=== PATIENT | male | born 1970 | race Caucasian/White ===

== ENCOUNTER 2019-03-08 21:31 | Inpatient (IN) | payer OTHER ==
[~2019-03-08 21:31] MED LIST: Iopamidol-370 76% 500 ML 1 ML ONE
[2019-03-08 22:34] LABS: #Basophils 0.1 thou/uL (0.0-0.2); #Eosinphils 0.1 thou/uL (0.0-0.7); #Lymphocytes 2.1 thou/uL (1.20-3.40); #Monocytes 1.7 thou/uL (0.11-0.59); %Basophils 0.5 % (0.0-1.0); %Eosinophils 0.6 % (0.0-10.0); %Lymphocytes 15.3 % (21.0-51.0); %Neutrophils 71.7 % (42.0-75.0); Hemoglobin 13.8 g/dL (14.0-18.0); Mean Corpuscular HGB CONC 32.5 g/dL (32.0-36.0); Mean Corpuscular Hemoglobin 32.2 pg (27.0-31.0); Mean Corpuscular Volume 99.1 fL (78.0-98.0); Mean Platelet Volume 7.2 fL (7.4-10.4); Platelet Count 374 thou/uL (130-400); RBC Distribution Width 12.3 % (11.5-14.5); Red Blood Cell (RBC) Count 4.29 mill/uL (4.70-6.10); White Blood Cell (WBC) Count 13.9 thou/uL (4.8-10.8)
[2019-03-08 22:57] LABS: ALT (SGPT) 54 U/L (8-55); AST (SGOT) 27 U/L (5-34); Albumin 3.9 g/dL (3.5-5.0); Alkaline Phosphatase 85 U/L (40-110); Anion Gap 12 mmol/L (10-20); BUN (Urea Nitrogen) 10 mg/dL (8.9-20.6); Bilirubin, Total 1.1 mg/dL (0.2-1.2); Calc. Creatinine Clearance 0 mL/min (70-130); Calcium 9.3 mg/dL (7.8-10.44); Carbon Dioxide 29 mmol/L (22-29); Chloride 98 mmol/L (98-107); Estimated GFR-MDRD Greater than 90; Globulin 3.7 g/dL (2.4-3.5); Glucose 93 mg/dL (70-105); Lipase 8 U/L (8-78); Potassium 4.2 mmol/L (3.5-5.1); Protein, Total 7.6 g/dL (6.0-8.3); Sodium 135 mmol/L (136-145)
[2019-03-08 23:41] LABS: Bilirubin Negative (Negative); Blood, Urine Negative (Negative); Clarity Clear (Clear); Glucose, Urine (Dipstick) Normal (Negative); Leukocyte Negative Leu/uL (Negative); Nitrite Negative (Negative); Protein, Urine (Dipstick) Negative (Neg-Trace); Urobilinogen Normal mg/dL (Less than 2)
[2019-03-09] MEDS ORDERED: Piperacillin/Tazobactam 3.375 GM VIAL ONE (00:40)
[2019-03-09] MEDS ORDERED: Morphine 4 MG/ML VIAL ONE (00:46)
[2019-03-09] MEDS ORDERED: Ondansetron PF 4 MG/2 ML Vial IVP PRN ×2 (03:50→13:19)
[2019-03-09] MEDS ORDERED: Ondansetron ODT 4 MG TAB SL PRN (03:50)
[2019-03-09] MEDS: Piperacillin/Tazobactam 3.375 GM in Sodium Chloride 0.9% 100 ML IVPB SCH ×4 (06:07→23:46)
[2019-03-09 07:16] LABS: INR-International Normal Ratio 1.3; PTT 35.7 SEC (22.9-36.1); Prothrombin Time 16.3 SEC (12.0-14.7)
--- NOTE | 2019-03-09 09:02 | CT ---
PRELIMINARY REPORT/[facility]/EMERGENCY AFTER HOURS PROCEDURE: Receipt of this report by the clinical staff was confirmed with RN Jasson Borges by Tim Lei on Mar 09, 2019 00:19:00 DOCTOR CHIROPRACTIC. Addendum electronically signed by America Lei on March 09, 2019 12:22:11 AM DOCTOR CHIROPRACTIC EXAM: CT Abdomen and Pelvis with Intravenous Contrast CLINICAL HISTORY: M48 presents to the ED with c/o interment fever, constipation and lower abdominal pain x 1 weeks. Pt states his bowel movements have become hard and infrequent. Pt reports small BM today. Pt states the pain started before the constipation. Surgical history of hernia repair. TECHNIQUE: Axial computed tomography images of the abdomen and pelvis with intravenous contrast. CONTRAST: With; ISOVUE 370, 90ML COMPARISON: None provided. FINDINGS: LUNG BASES: No basilar airspace consolidation or pleural effusion. Trace bibasilar atelectasis. LIVER: Unremarkable. GALLBLADDER AND BILE DUCTS: Unremarkable. No calcified stone. No ductal dilation. PANCREAS: Unremarkable. SPLEEN: Unremarkable. ADRENAL GLANDS: Unremarkable. KIDNEYS, URETERS, AND BLADDER: Unremarkable. No hydronephrosis or nephrolithiasis. No ureteral or concepción dder calculi. STOMACH AND BOWEL: No obstruction. No wall thickening. No CT evidence of colitis or acute diverticuli tis. APPENDIX: Right retrocecal abscess which measures 4.5 x 3.1 x 6.7 cm (transverse, AP, CC) associated with an indistinct, expanded appendix. There is surrounding inflammatory stranding. There is gas with in the abscess, however no gulshan gas within the abdomen. PERITONEUM: No free fluid. No free air. LYMPH NODES: No lymphadenopathy. REPRODUCTIVE: Unremarkable as visualized. VASCULATURE: Atherosclerotic calcification of the aorta and major branches without aneurysm. BONES: Transitional lumbosacral anatomy with pseudoarticulation of the left transverse process of L5 with the sacrum. No acute fractures or worrisome osseous lesions. ABDOMINAL WALL AND SOFT TISSUES: Unremarkable. IMPRESSION: 6.7 cm retrocecal abscess which is most concerning for ruptured acute appendicitis. Recommend surgica l evaluation. ELECTRONICALLY SIGNED BY: Gerhard Pratt M.D. Mar 09, 2019 12:17:48 AM DOCTOR CHIROPRACTIC This report is intended for review by the ordering physician only, in accordance of law. If you recei ve this report in error, please call [facility] at [phone]. FINAL REPORT EMERGENCY AFTER HOURS CT ABDOMEN AND PELVIS WITH CONTRAST: FINDINGS/IMPRESSION: I agree with the findings and impression given in the preliminary report per [facility] physici an. There is an abscess adjacent to the cecum.
[2019-03-09] MEDS: Morphine 2 MG/ML SYRINGE SLOW IVP PRN ×3 (11:26→20:41)
--- NOTE | 2019-03-09 11:41 | HP ---
CHIEF COMPLAINT: Abdominal pain. HISTORY OF PRESENT ILLNESS: The patient is a 48-year-old white male. He has a 1-week history of abdominal complaints that he felt was primarily related to constipation. He denies any nausea or vomiting. He felt that he had pain on both sides of his abdomen. He notes that he has been febrile the past few days. He presented to the emergency room overnight for evaluation that was carried out with laboratory and radiologic studies. Labs revealed elevated white blood cell count of 13.9 with a hemoglobin of 13.8. His chemistry panel was more or less unremarkable. A CT scan of his abdomen and pelvis was obtained revealing a retrocecal perforated appendicitis with an abscess extending up along the posterior aspect of the right colon. This appears to be amenable to a percutaneous drainage. He was admitted to my service for further treatment. PAST MEDICAL HISTORY: Significant for history of tobacco abuse. PAST SURGICAL HISTORY: He has had left knee surgery and left inguinal hernia repair. MEDICATIONS: None. ALLERGIES: NO KNOWN DRUG ALLERGIES. PRIMARY CARE PHYSICIAN: None. PERSONAL AND SOCIAL HISTORY: He is with 3 children. He lives in [place]. He smokes about one pack per day of cigarettes. He drinks alcohol occasionally, but not every day. He works in [employer]. REVIEW OF SYSTEMS: Otherwise unremarkable. FAMILY HISTORY: Noncontributory. PHYSICAL EXAMINATION: VITAL SIGNS: His temperature on the floor is 98.2, pulse 90, blood pressure 123/70. GENERAL: A well-developed, well-nourished, pleasant white male, resting in bed, in no acute distress. He is alert and oriented x3. HEAD, EYES, EARS, NOSE, AND THROAT: Unremarkable. NECK: Supple without mass or tenderness. LUNGS: Clear to auscultation throughout. CARDIAC: Regular rate and rhythm without murmur. ABDOMEN: Protuberant. I cannot tell if it is distended or if he just normally has a protuberant abdomen. Bowel sounds are present and normoactive. He is tender to palpation on the right side of his abdomen. He claims some discomfort on the left side, but does not appear to have any peritoneal signs over there. EXTREMITIES: Unremarkable. ASSESSMENT: The patient with perforated appendix with abscess formation. PLAN: CT-guided percutaneous drainage per Radiology today. I will keep him on IV antibiotics, advance his diet as he tolerates, and discharge him when he appears to be stabilized, hopefully in 2 or 3 days. I would thereafter anticipate discharge home with the catheter still in place and eventual outpatient removal. I discussed the possibility of an interval appendectomy in 6 to 12 weeks depending upon his course. Job ID: [id number]
--- NOTE | 2019-03-09 13:04 | RAD ---
EXAM: 2 views of the abdomen HISTORY: Abdominal pain; code Green COMPARISON: None FINDINGS: 2 views of the abdomen shows a nonspecific, nonobstructive bowel gas pattern. A pigtail cat heter is seen in the right lower quadrant of the abdomen. No free air or air-fluid levels are seen on upright examination. No suspicious calcifications are seen. The bones are unremarkable. IMPRESSION: No evidence of bowel obstruction.
--- NOTE | 2019-03-09 13:16 | CT ---
CT GUIDED RIGHT RETROPERITONEAL ABSCESS DRAINAGE: INDICATION: Retrocecal abscess. TECHNIQUE: Informed consent was obtained. Patient was placed in the left lateral decubitus position. Preprocedur e CT was performed for guidance purposes only. Site overlying the collection residing posterior to the cecum was localized on the skin with a preprocedure CT evaluation. Buffered 1% lidocaine was admi nistered to the overlying subcutaneous tissues and the right lateral abdominal wall. Under CT fluoroscopic guidance, a 15 cm 5 Malay Workspot catheter was guided down to the level of the collection. An 0.035 Amplatz wire was then introduced into the catheter and found to coil within the collection, extending up to underlie the right hepatic margin. An 8 Malay is soft tissue dilator was then introduced into the abdominal wall. An 8 Malay all-purpose drain was then guided over the wire and coiled within the collection. There was approximately 18 cc of purulent material aspirated f rom the collection through the catheter. The catheter was fixated to the abdominal wall utilizing an 0 silk suture and a Percu-Stay device. The patient did undergo conscious sedation for the examinat ion received 100 mcg of IV fentanyl and 2 mg of IV Versed. The patient tolerated the examination without difficulty. FINDINGS: Post procedure examination demonstrates a small amount of gas within the right and abdominal wall fred ng the tract of the all-purpose drain. A small amount of extraluminal gas is seen adjacent to the catheter likely from catheter placement. The fluid collection is near totally resolved following aspi ration of the purulent material. IMPRESSION: Successful CT-guided right retroperitoneal abscess drainage. Transcribed Date/Time: 03/09/2019 1:41 PM
[2019-03-09] MEDS ORDERED: Morphine 4 MG/ML VIAL SLOW IVP PRN (13:17)
[2019-03-09] MEDS ORDERED: Promethazine HCl 25 MG/ML VIAL IM SCH (13:20)
[2019-03-09] MEDS: D5 0.9% NS w/ 20 mEq KCl 1,000 ML IV SCH ×3 (14:08→23:55)
[2019-03-09] MEDS ORDERED: Acetaminophen 500 MG TAB PO PRN (17:56)
[2019-03-09] MEDS: Famotidine 20 MG TAB PO SCH (20:41)
[2019-03-09] MEDS ORDERED: FLU VACC QS2019-20(6MOS UP)/PF 60 MCG/0.5 ML SYRINGE IM ONE (21:00)
[2019-03-10] MEDS: Morphine 2 MG/ML SYRINGE SLOW IVP PRN ×2 (04:29→07:53)
[2019-03-10 06:07] LABS: #Eosinphils 0.1 thou/uL (0.0-0.7); #Lymphocytes 1.1 thou/uL (1.20-3.40); #Monocytes 0.9 thou/uL (0.11-0.59); #Neutrophils 8.7 thou/uL (1.40-6.50); %Basophils 0.2 % (0.0-1.0); %Eosinophils 0.8 % (0.0-10.0); %Lymphocytes 10.2 % (21.0-51.0); %Monocytes 8.1 % (0.0-10.0); %Neutrophils 80.7 % (42.0-75.0); Hemoglobin 12.5 g/dL (14.0-18.0); Mean Corpuscular HGB CONC 34.7 g/dL (32.0-36.0); Mean Platelet Volume 7.4 fL (7.4-10.4); Platelet Count 366 thou/uL (130-400); RBC Distribution Width 12.6 % (11.5-14.5); Red Blood Cell (RBC) Count 3.57 mill/uL (4.70-6.10); White Blood Cell (WBC) Count 10.8 thou/uL (4.8-10.8)
[2019-03-10] MEDS: Piperacillin/Tazobactam 3.375 GM in Sodium Chloride 0.9% 100 ML IVPB SCH ×4 (06:16→23:40)
[2019-03-10 06:25] LABS: Anion Gap 9 mmol/L (10-20); BUN (Urea Nitrogen) 10 mg/dL (8.9-20.6); Calc. Creatinine Clearance 147 mL/min (70-130); Calcium 8.1 mg/dL (7.8-10.44); Carbon Dioxide 24 mmol/L (22-29); Chloride 107 mmol/L (98-107); Estimated GFR-MDRD Greater than 90; Glucose 128 mg/dL (70-105); Potassium 3.8 mmol/L (3.5-5.1); Sodium 136 mmol/L (136-145)
--- NOTE | 2019-03-10 07:05 | PDOC.GSPN ---
Surgery Progress Note: Subj - Subjective Narrative: Mr. Mota is a 48 y/o white male on hospital day #2 for ruptured appendicitis with retroceccal abscess formation. CT guided percutaneous drainage yesterday by radiology. Drain was left in place and over the last 24 hours has drained 65 ml of serosaingenous fluid. Anthony ballard was called yesterday for nurse concerns about tachycardia (highest 119bpm), abdominal rigidity and fever and the patient reports that he was 'cold and shaking'. Abdominal x ray taken at the time was negative for free air or small bowel obstruction. The episode was self limiting and resolved. No similar episodes overnight. He reports that he has had previous episodes of cold intolerance in his life. Denies palpitations, CP, SOB, changes in weight or energy in the last few months. He is receiving IV zosyn and D5 NS w/ 20 KCl at a rate of 125 ml/ hr. He still is reporting abdominal pain localized at the drain site, 7/10, worse with eating/drinking and movement. He was able to get out of bed yesterday to walk to the bathroom twice. Denies nausea or vomiting. Had 1 bowel movement at 4AM that was 'mostly gas and a little splash of diarrhea" without blood or mucous. Abdominal pain greatly improved after BM. Reports that he has been using incentive spirometry. Surgery Progress Note: Obj - Vital signs Vital signs: Vital Signs - Most Recent Temp Pulse Resp BP Pulse Ox 97.9 F 93 16 133/70 96 03/10/19 04:02 03/10/19 04:02 03/10/19 04:02 03/10/19 04:02 03/10/19 04:02 - Physical Exam General: no distress, other ENT: no congestion, other (O2 nasal canula in place) Cardiovascular: regular rate and rhythm, no murmur, other (2+ radial pulses. No peripheral edema.) Respiratory: clear to auscultation, wheezing, other (long expiratory phase) Abdomen: rigid, tender (on the entire right side of his abddomen.), other ( protuberant abdomen.Negative rebound tenderness. RLQ drain in place. Drain site without erythema/inflammation.) Wound: drainage (RLQ drain recently emptied.) Surgery Progress Note: Results - Labs Result Diagrams: 03/10/19 05:40 03/10/19 05:40 Lab results: Laboratory Results - last 24 hr 03/10/19 03/10/19 05:40 05:40 WBC 10.8 RBC 3.57 L Hgb 12.5 L Hct 35.9 L MCV 101.0 H MCH 35.0 H MCHC 34.7 RDW 12.6 Plt Count 366 MPV 7.4 Neutrophils % 80.7 H Lymphocytes % 10.2 L Monocytes % 8.1 Eosinophils % 0.8 Basophils % 0.2 Neutrophils # 8.7 H Lymphocytes # 1.1 L Monocytes # 0.9 H Eosinophils # 0.1 Basophils # 0.0 Sodium 136 Potassium 3.8 Chloride 107 Carbon Dioxide 24 Anion Gap 9 L BUN 10 Creatinine 0.72 Estimated GFR (MDRD) Greater than 90 Glucose 128 H Calcium 8.1 Surgery Progress Note: A/P - Plan Plan: 48 y/o white male on hospital day #2 for perforated appendix and retrocecal abscess formation that was drained yesterday. Nursing reports that his condition is worsening from admission. His white count has come down to 10.8 from 13.9 and he has not been febrile other than during the code green episode yesterday. Code green yesterday may have been d/t patient's reaction/pain from recent drain placement. His abdomen still has significant tenderness and plan is to continue IV Abx, continue regular diet, encourage ambulation and monitor for improvement of his abdominal pain. He is tolerating diet and his fluids can be turned down to 75 ml/hr today. His cold intolerance and tachycardia raise concern for possible thyroid etiology or paroxysmal afib (perhaps 2/2 to COPD: 30 pk year smoking hx, SOB and wheezing on exam). I think it would be beneficial to get a baseline TSH w/ reflex T4 for him right now. Patient has been encouraged to ambulate and use incentive spirometry. Agree with above. Anticipate discharge tomorrow with drain still in.
[2019-03-10] MEDS ORDERED: HYDROcodone/Acetaminophen 7.5/325 mg Tablet PO PRN (07:51)
[2019-03-10] MEDS ORDERED: Ondansetron ODT 4 MG TAB PO PRN (07:52)
[2019-03-10] MEDS: Polyethylene Glycol 3350 17 GM Packet PO SCH (10:07)
[2019-03-10] MEDS: Famotidine 20 MG TAB PO SCH ×2 (10:07→21:07)
[2019-03-10] MEDS: Enoxaparin Sodium 40 MG/0.4 ML SYRINGE SC SCH (10:07)
[2019-03-10] MEDS: D5 0.9% NS w/ 20 mEq KCl 1,000 ML IV SCH ×5 (10:44→23:41)
[2019-03-10] MEDS: HYDROcodone/Acetaminophen 7.5/325 mg Tablet PO PRN ×2 (11:58→21:14)
[2019-03-11] MEDS: HYDROcodone/Acetaminophen 7.5/325 mg Tablet PO PRN ×3 (04:38→12:42)
[2019-03-11] MEDS: Piperacillin/Tazobactam 3.375 GM in Sodium Chloride 0.9% 100 ML IVPB SCH ×2 (06:28→12:10)
--- NOTE | 2019-03-11 07:53 | PDOC.GSPN ---
Surgery Progress Note: Subj - Subjective Narrative: Mr. Mota is a 48 y/o male on hospital day #3 following perforated appendicitis with retroceccal abscess. He underwent CT guided percutaneous drainage on Thursday by radiology and drain remains in RLQ. Per nursing drain produced 38mls of serous fluid overnight. Pt states he had a "fairly uneventful " night receiving Kinsey at 0430 for pain and duonebs at 0628 this morning. He still reports abdominal pain on right side of abdomen, 7/10, with maximum intensity in RLQ that is worse with movement and eating. He is tolerating a regular diet having eaten dinner and breakfast without nausea or vomiting. Pt did not have any other bowel movements overnight but states that he has mild flatulence, "feels the urge to go" last night/a.m. but nothing happens when he goes to the bathroom. He is walking the floor often and using incentive spirometry. TSH from yesterday was WNL and patient denies any other episodes of "cold and shaking" that he experienced yesterday. He is receiving IV zosyn and D5 NS with 20 Kavita KCl at rate of 75 ml/hr. Denies N/V/D, cough, SOB, CP, palpitations. As above. Will not repeat labs. Will discharge today. Surgery Progress Note: Obj - Vital signs Vital signs: Vital Signs - Most Recent Temp Pulse Resp BP Pulse Ox 98.5 F 83 16 119/64 94 L 03/11/19 06:25 03/11/19 06:28 03/11/19 06:28 03/11/19 06:25 03/11/19 06:30 - Physical Exam General: no distress ENT: normal mucosa Cardiovascular: other (regular rate and rhythm, no MGR, 2+ radial and dorsalis pedis pulses. No peripheral edema) Respiratory: other (clear and vesicular in all lung morejon without wheezing, rhonchi, or rales.) Abdomen: other (protuberant abdomen with tenderness on right side maximum intensity in RLQ, negative guarding or rebound tenderness. Drain in RLQ without erythema/warmth/inflammation and put out 38 mls of "purulent serous fluid" overnight.) Wound: other (RLQ drain in place...without concerning erythema/warmth/ inflammation (drained this morning).) Surgery Progress Note: Results - Labs Result Diagrams: 03/10/19 05:40 03/10/19 05:40 Surgery Progress Note: A/P - Plan Plan: Mr. Mota is a 48 y/o male on hospital day #3 for perforated appendicitis and retroceccal abscess. He received a CT guided percutaneous drain on Thursday which remains in place and drained 38mls or "purulent serous fluid" overnight. He stills complains of right sided abdominal pain, 7/10, and managed with Kinsey overnight. His WBC was down to 10.8 yesterday after being 13.9 on presentation. Since his abdomen continues to have significant pain, we will continue IV Antibiotics, manage pain with Kinsey as needed. Recommend running CBC and CMP today in light of persistent symptoms. Continue regular diet as its being tolerated well, and encouraged continued ambulation and incentive spirometry. Continue fluids at 75 ml/hr and monitor for pain management and bowel movements. Anticipate discharge later today or tomorrow if pt is stable (pain is managed/continues to tolerate PO diet, and pending lab results) with drain in place and f/u in office next week.
[2019-03-11 07:55] VITALS: TEMP 98
[2019-03-11] MEDS: Famotidine 20 MG TAB PO SCH (08:15)
[2019-03-11] MEDS: Polyethylene Glycol 3350 17 GM Packet PO SCH (08:15)
[2019-03-11] MEDS: Enoxaparin Sodium 40 MG/0.4 ML SYRINGE SC SCH (08:16)
[2019-03-11] MEDS: D5 0.9% NS w/ 20 mEq KCl 1,000 ML IV SCH (08:17)
[2019-03-11 11:30] VITALS: BP 125/68
[2019-03-11] MEDS ORDERED: Magnesium Citrate 300 ML BOT PO SCH (14:00)
[2019-03-11 14:46] VITALS: BMI 28.0
--- NOTE | 2019-03-14 00:02 | EKG ---
Test Reason : CODE GREEN Blood Pressure : / mmHG Vent. Rate : 111 BPM Atrial Rate : 111 BPM P-R Int : 142 ms QRS Dur : 074 ms QT Int : 310 ms P-R-T Axes : 036 060 000 degrees QTc Int : 421 ms Sinus tachycardia Otherwise normal ECG No previous ECGs available Confirmed by Pelon AUSTIN ([id number]) on 03/14/2019 12:01:36 AM Referred By: DEE Confirmed By:Pelon AUSTIN
--- NOTE | 2019-03-14 11:19 | DIS ---
DATE OF ADMISSION: 03/09/2019 DATE OF DISCHARGE: 03/11/2019 ADMISSION DIAGNOSIS: Ruptured appendicitis with retro-colonic abscess. DISCHARGE DIAGNOSIS: Ruptured appendicitis with retro-colonic abscess. PROCEDURE PERFORMED: Percutaneous CT-guided drainage of retro-colonic appendiceal abscess on March 09. ADMISSION HISTORY: The patient is a 48-year-old white male, who gave a 1-week history of abdominal pain, which he felt with constipation. He acknowledged fevers prior to presentation. At the time of presentation, CT scan demonstrated a substantial abscess that emanated from a retrocecal appendix. He was admitted to the hospital to my service and placed on IV antibiotics, utilizing Zosyn. HOSPITAL COURSE: The day of his admission, I contacted Radiology, who performed a percutaneous CT-guided drainage procedure, leaving a drain within the abscess cavity. On the day of his procedure, he had an episode that was called a Code Green. He was actually just shivering substantially from feeling cold after his procedure. After several blankets were placed, he warmed up and his episode went away. During the course of that episode, x-rays were obtained as well as laboratory studies, which revealed no other concerning abnormality. He did well after the drain was placed. He remained afebrile and his mild tachycardia improved. His white blood cell count dropped from 13.9 before the procedure down to 10.8 after the procedure. Cultures revealed E coli as well as Streptococcus. He was maintained on IV antibiotics while he was in the hospital. He was felt to be stable after a couple of days in the hospital. His diet was advanced unremarkably. He was discharged home 2 days after his drain was placed. He was given a discharge prescription for Augmentin and hydrocodone. He was asked to follow up in my office in 5 days for drain removal. He was instructed in drain flushing and drain output measuring. Job ID: [id number]
== END 2019-03-11 16:01 | disposition home or self-care (01) | DRG 373 ==
LOC: ERS 21:31 → 3SE 03-09 03:43
PROVIDERS: ADMIT Specialist; ATTEND Specialist
PROC: 0W9G30Z Drainage of Peritoneal Cavity with Drainage Device, Percutaneous Approach (ICD-10-PCS; principal; 2019-03-09)
DX: K35.33 Acute appendicitis with perforation, localized peritonitis, and gangrene, with abscess (principal); F17.210 Nicotine dependence, cigarettes, uncomplicated; Z98.890 Other specified postprocedural states
CPT/HCPCS: 36415; 36416; 49060; 74019; 74177; 77012; 80048; 80053; 81003; 83690; 84443; 85025; 85610; 85730; 87070; 87077; 87186; 87205; 93005; 93010; 94640; 96361; 96365; 96375; C1729; J1650; J2175; J2270; J2543; J2550; J3480; J3490; J7620; Q9967